=== PATIENT | male | born 1970 | race Caucasian/White ===

== ENCOUNTER 2017-06-28 16:14 | Emergency (ER) | payer MEDICAID ==
[~2017-06-28] VITALS: Ht 175.3 cm; Wt 79.6 kg
[2017-06-28 16:18] VITALS: BP 147/92
--- NOTE | 2017-06-28 16:21 | NUR ---
PT SENT TO LOBBY TO WAIT FOR BED. DR. ABREU UPDATED ABOUT PATIENT STATUS. VSS. NO DISTRESS NOTED.
--- NOTE | 2017-06-28 17:01 | NUR ---
PT AMB TO BED 2
--- NOTE | 2017-06-28 17:03 | NUR ---
47/M BIB C/O LLQ PAIN & NAUSEA X 3 DAYS . HX : SURGICAL HX: X5 BACK SURGERIES, APPENDECTOMY.DENIES V/D; SKIN IS PINK/WARM/DRY; AAOX4 WITH EVEN AND STEADY GAIT; LUNGS CLEAR BL; HR EVEN AND REGULAR; PT DENIES ANY FEVER, CP, SOB, OR COUGH AT THIS TIME; PATIENT STATES PAIN OF 8/10 AT THIS TIME. PATIENT POSITIONED FOR COMFORT; HOB ELEVATED; BEDRAILS UP X2; BED DOWN. ER MD MADE AWARE OF PT STATUS.
[2017-06-28 17:11] VITALS: BP 128/86
--- NOTE | 2017-06-28 17:29 | NUR ---
lab at bedside
[2017-06-28 17:48] LABS: BASOPHILS % (AUTO) 0.5 % (0.0-2.0); EOSINOPHILS # (AUTO) 0.1 K/uL (0-0.4); EOSINOPHILS % (AUTO) 2.5 % (0.0-4.0); HEMATOCRIT 43.9 % (36-52); HEMOGLOBIN 14.7 g/dL (12.0-18.0); LYMPHOCYTES # (AUTO) 1.6 K/uL (2.0-11.5); MEAN CORPUSCULAR HEMOGLOBIN 30 pg (27-31); MEAN CORPUSCULAR HGB CONC 34 g/dL (33-37); MEAN CORPUSCULAR VOLUME 89.4 fL (80-94); MONOCYTES # (AUTO) 0.4 K/uL (0.8-1.0); MONOCYTES % (AUTO) 7.6 % (1.7-9.3); NEUTROPHILS # (AUTO) 2.6 K/uL (1.8-7.7); NEUTROPHILS % (AUTO) 55.4 % (42.2-75.2); PLATELET COUNT (AUTO) 194 K/uL (140-450); RED BLOOD CELL COUNT(AUTO) 4.91 MIL/uL (4.20-6.10); WHITE BLOOD COUNT (AUTO) 4.8 K/uL (4.8-10.8)
--- NOTE | 2017-06-28 17:58 | NUR ---
Patient being evaluated by DR ARBEU at bedside.
[2017-06-28 18:00] LABS: ANION GAP 14.3 (8-16); CARBON DIOXIDE 25.8 mmol/L (21-32); CREATININE 0.9 mg/dL (0.7-1.3); POTASSIUM 3.1 mmol/L (3.5-5.1)
[2017-06-28] MEDS ORDERED: HYDROmorphone PFS 2 MG/ML SYR IVP ONE ×2 (18:00→18:55)
[2017-06-28] MEDS ORDERED: ONDANSETRON 4 MG/2 ML VIAL IVP ONE (18:00)
[2017-06-28 18:18] LABS: ALBUMIN 3.8 g/dL (3.4-5.0); TOTAL BILIRUBIN 0.3 mg/dL (0.0-1.0)
--- NOTE | 2017-06-28 18:53 | NUR ---
IV from left AC removed, catheter intact and site benign. Applied folded 4x4 gauze and tape to stop bleeding.
--- NOTE | 2017-06-28 19:07 | NUR ---
Pt report given to ANDREW VARGAS. Transfer of care at this time.
--- NOTE | 2017-06-28 19:10 | NUR ---
GOT REPORT FROM ANDREW SERRANO.
--- NOTE | 2017-06-28 19:39 | NUR ---
PT. STATES PAIN 12/03. MADE AWARE.
[2017-06-28] MEDS ORDERED: MORPHINE SULFATE 2 MG/ML SYR IVP ONE (19:55)
[2017-06-28] MEDS ORDERED: MORPHINE SULFATE 4 MG/ML SYR ONE (20:03)
--- NOTE | 2017-06-28 20:15 | NUR ---
PATIENT ELOPED FROM FACILITY. DISCHARGE INSTRUCTIONS NOT GIVEN TO PATIENT. NOTIFIED.
== END 2017-06-28 20:15 | disposition left against medical advice (07) ==
LOC: MED 16:14
DX: R10.9 Unspecified abdominal pain (principal); F11.20 Opioid dependence, uncomplicated; Z88.8 Allergy status to other drugs, medicaments and biological substances
CPT/HCPCS: 36415; 74177; 80053; 81002; 83690; 85025; 96374; 96375; 96376; 99285; J1170; J2270; J2405; Q9967

== ENCOUNTER 2017-07-05 12:08 | Emergency (ER) | payer MEDICAID ==
[~2017-07-05] VITALS: Ht 175.3 cm; Wt 80.3 kg
[2017-07-05 12:13] VITALS: BP 124/77
[2017-07-05] MEDS ORDERED: MORPHINE SULFATE 4 MG/ML SYR IVP ONE ×4 (12:30→16:30)
[2017-07-05] MEDS ORDERED: ONDANSETRON 4 MG/2 ML VIAL IVP ONE ×2 (12:30→13:40)
--- NOTE | 2017-07-05 12:30 | NUR ---
PATIENT REFUSED TO PROVIDE URINE SAMPLE. EARL DURAN MADE AWARE.
--- NOTE | 2017-07-05 12:30 | NUR ---
PATIENT PRESENTS TO ED WITH SEVERE LEFT LOWER QUADRANT PAIN. PT STATES ITS BEEN GOING ON FRO 2 WEEKS BUT GOT REALLY BAD THIS MORNING. DENIES DIARRHEA; SKIN IS PINK/WARM/DRY; AAOX4 WITH EVEN AND STEADY GAIT; LUNGS CLEAR BL; HR EVEN AND REGULAR; PT DENIES ANY FEVER, CP, SOB, OR COUGH AT THIS TIME; PATIENT STATES PAIN OF 8/10 AT THIS TIME; VSS; PATIENT POSITIONED FOR COMFORT; HOB ELEVATED; BEDRAILS UP X1; BED DOWN. ER MD MADE AWARE OF PT STATUS.
--- NOTE | 2017-07-05 12:34 | NUR ---
PATIENT REFUSED EKG, ER MD DR. BEAR MADE AWARE.
[2017-07-05 13:08] LABS: BASOPHILS % (AUTO) 0.4 % (0.0-2.0); EOSINOPHILS # (AUTO) 0.1 K/uL (0-0.4); EOSINOPHILS % (AUTO) 1.6 % (0.0-4.0); HEMOGLOBIN 12.9 g/dL (12.0-18.0); LYMPHOCYTES # (AUTO) 1.2 K/uL (2.0-11.5); MEAN CORPUSCULAR HEMOGLOBIN 33 pg (27-31); MEAN CORPUSCULAR HGB CONC 33 g/dL (33-37); MEAN CORPUSCULAR VOLUME 98.7 fL (80-94); MONOCYTES # (AUTO) 0.6 K/uL (0.8-1.0); MONOCYTES % (AUTO) 7.6 % (1.7-9.3); NEUTROPHILS # (AUTO) 5.5 K/uL (1.8-7.7); NEUTROPHILS % (AUTO) 74.4 % (42.2-75.2); PLATELET COUNT (AUTO) 236 K/uL (140-450); RED BLOOD CELL COUNT(AUTO) 3.95 MIL/uL (4.20-6.10); RED CELL DISTRIBUTION WIDTH 14.8 % (11.6-13.7); WHITE BLOOD COUNT (AUTO) 7.5 K/uL (4.8-10.8)
[2017-07-05] MEDS: NACL 0.9% 1,000 ML IV SCH ×2 (13:08→14:53)
[2017-07-05 13:16] LABS: ANION GAP 13.8 (8-16); CARBON DIOXIDE 26.4 mmol/L (21-32); CREATININE 0.8 mg/dL (0.7-1.3); POTASSIUM 4.2 mmol/L (3.5-5.1)
[2017-07-05 13:23] LABS: ALBUMIN 3.7 g/dL (3.4-5.0); TOTAL BILIRUBIN 0.3 mg/dL (0.0-1.0)
[2017-07-05] MEDS ORDERED: PROMETHAZINE 25 MG/ML VIAL IVP ONE (15:00)
[2017-07-05 17:23] VITALS: BP 132/80
--- NOTE | 2017-07-05 17:25 | NUR ---
Patient discharged with v/s stable. Written and verbal after care instructions given and explained. Patient alert, oriented and verbalized understanding of instructions. Ambulatory with steady gait. All questions addressed prior to discharge. ID band removed. Patient advised to follow up with PMD. Rx of ZOFRAN, CIPROFLOXACIN, METRONIDAZOLE given. Patient educated on indication of medication including possible reaction and side effects. Opportunity to ask questions provided and answered.
== END 2017-07-05 17:25 | disposition home or self-care (01) ==
LOC: MED 12:08
DX: K52.9 Noninfective gastroenteritis and colitis, unspecified (principal); Z88.6 Allergy status to analgesic agent; Z90.49 Acquired absence of other specified parts of digestive tract
CPT/HCPCS: 36415; 74176; 80053; 82150; 83690; 85025; 96361; 96374; 96375; 96376; 99285; J2270; J2405; J2550

== ENCOUNTER 2019-06-13 17:34 | Emergency (ER) | payer MEDICAID ==
[~2019-06-13] VITALS: Ht 175.3 cm; Wt 80.3 kg
--- NOTE | 2019-06-13 17:41 | NUR ---
PT AMBULATED TO ER BED 07
[2019-06-13 17:42] VITALS: BP 125/71
--- NOTE | 2019-06-13 17:47 | NUR ---
C/O LEFT LOWER BACK PAIN RADIATING TO LLQ 10/10 STARTING SUDDENDLY THIS MORNING ACCOMPANIED BY DYSURIA. PT DENIES N/V/D/FEVER. ABD SOFT/FLAT AND TENDER TO PALPATION TO LLQ. BOWEL SOUNDS PRESENT X4. PT STATES HE HAS HAD HX OF KIDNEY STONES 3 TIMES IN THE PAST. PROVIDED PT WITH GOWN TO CHANGE AND URINE CUP. PT STATES HE JUST URINATED WHEN HE GOT HERE SO HE CAN'T GO AT THIS TIME.
--- NOTE | 2019-06-13 17:58 | NUR ---
PT WALKED OUT OF ER STATING HE "WAS GOING TO TELL HIS THAT HE WAS GOING TO BE HERE FOR A WHILE".
--- NOTE | 2019-06-13 17:58 | NUR ---
PATIENT ELOPED FROM FACILITY. DISCHARGE INSTRUCTIONS NOT GIVEN TO PATIENT. DR. GUARDADO NOTIFIED.
[2019-06-13] MEDS ORDERED: MORPHINE SULFATE 4 MG/ML SYR IVP ONE (18:00)
--- NOTE | 2019-06-13 18:00 | NUR ---
LAB AT BEDSIDE, PT NOT THERE. INFORMED LAB I WILL CALL HER IF HE COMES BACK
--- NOTE | 2019-06-13 18:11 | NUR ---
PT STILL HAS NOT RETURNED TO BED.
== END 2019-06-13 17:58 | disposition left against medical advice (07) ==
LOC: MED 17:34
DX: R10.32 Left lower quadrant pain (principal); R11.0 Nausea; F17.210 Nicotine dependence, cigarettes, uncomplicated; Z90.49 Acquired absence of other specified parts of digestive tract; Z98.890 Other specified postprocedural states; Z88.8 Allergy status to other drugs, medicaments and biological substances; Z87.442 Personal history of urinary calculi
CPT/HCPCS: 99281

== ENCOUNTER 2019-09-28 20:27 | Emergency (ER) | payer MEDICAID ==
[~2019-09-28] VITALS: Ht 172.7 cm; Wt 81.6 kg
[2019-09-28 20:30] VITALS: BP 150/90
--- NOTE | 2019-09-28 20:36 | NUR ---
PT TAKEN TO BED 9
--- NOTE | 2019-09-28 20:44 | NUR ---
Dr. Sanchez examining patient.
[2019-09-28] MEDS ORDERED: NACL 0.9% 1,000 ML IV ONE (20:50)
[2019-09-28] MEDS ORDERED: MORPHINE SULFATE 2 MG/ML SYR IVP ONE (20:50)
--- NOTE | 2019-09-28 21:00 | NUR ---
PT BIB SELF FOR S/P FALL FROM 15FT BUILDING. DENIES LOC. PT AAO X4. HAS 10/10 C/O R SHOULD AND R SIDE OF RIBS PAIN. NO RESPIRATORY DISTRESS NOTED. EQUAL CHEST RISE AND FALL. NO OBVIOUS DEFORMITY NOTED. PT BIB W/C. VSS. CMS INTACT ON BLE AND BUE. NO OBVIOUS BLEEDING OR BURSING NOTED. LUNG SOUNDS CLEAR ALL THROUGHOUT. ALLERIGES: IBUPROFEN, KETOROLAC
--- NOTE | 2019-09-28 21:19 | NUR ---
PT REFUSED CT SCAN. PT AOO X4. BENEFITS OF PROCEDURE EXPLAINED. PT STILL REFUSED CT SCAN.
[2019-09-28 21:20] VITALS: BP 150/90
--- NOTE | 2019-09-28 21:20 | NUR ---
Patient does not wish to proceed with medical care recommended by DR. LUZ. Patient given information related to possible complications, up to and including , which could occur as a result of leaving hospital at this time. Patient verbalizes understanding of risks involved leaving against medical advice. Patient has signed AMA form.
--- NOTE | 2019-09-28 21:20 | NUR ---
PT SIGNED AMA FORM, PT WAS EDUCATED ON THE HEALTH RISK OF LEAVING, STILL REFUSED ALL NURSING CARE AND SIGNED AMA FORM.
== END 2019-09-28 21:20 | disposition left against medical advice (07) ==
LOC: MED 20:27
DX: M25.511 Pain in right shoulder (principal); M54.9 Dorsalgia, unspecified; M25.551 Pain in right hip; I10 Essential (primary) hypertension; Z88.8 Allergy status to other drugs, medicaments and biological substances; Z88.6 Allergy status to analgesic agent; Z98.890 Other specified postprocedural states; Z87.442 Personal history of urinary calculi
CPT/HCPCS: 96361; 96374; 99283; J2270; J7030

== ENCOUNTER 2023-01-06 23:00 | Emergency (ER) | payer MEDICAID ==
[~2023-01-06] VITALS: Ht 177.8 cm; Wt 79.8 kg
[2023-01-06 23:28] VITALS: BP 118/85; PULSE 82; RESP 20; TEMP 97.2; O2SAT 99
== END 2023-01-07 00:17 | disposition left against medical advice (07) ==
LOC: MED 23:00
DX: M54.50 Low back pain, unspecified (principal); Z53.21 Procedure and treatment not carried out due to patient leaving prior to being seen by health care provider
CPT/HCPCS: 99281